=== PATIENT | female | born 1995 | race Caucasian/White ===

== ENCOUNTER 2017-01-18 18:20 | Emergency (ER) | payer OTHER ==
[~2017-01-18] VITALS: Ht 162.6 cm; Wt 82.0 kg
[~2017-01-18 18:20] MED LIST: ACET325T33 PO; AMOX1TAB10 PO
[2017-01-18 19:02] VITALS: Ht 162.6 cm; Wt 82.0 kg
[2017-01-18] MEDS ORDERED: AZIT250T94 PO (19:18)
[2017-01-18] MEDS ORDERED: IBUP-1542 PO (19:18)
[2017-01-18] MEDS ORDERED: [UNRECOGNIZED DRUG - CODE] PO (19:19)
--- NOTE | 2017-01-18 19:21 | ERD ---
ER Documentation Chief Complaint Date/Time DATE: 01/18/17 TIME: 19:20 Chief Complaint sore throat and left ear pain x 1 week HPI This 21-year-old female presents with sore throat and left ear pain for last week. She has mild congestion without significant cough and no history of vomiting, vomiting, diarrhea. There is no bleeding or discharge. ROS All systems reviewed and are negative except as per history of present illness. Medications Home Meds Active Scripts Guaifen/Phenyleph/Acetaminophn (Sudafed PE Pressure+Pain+Mucus) 1 Each Tablet, 1 EACH PO BID, #14 TAB Prov:MARY MONTGOMERY MD 01/18/17 Ibuprofen* (Motrin*) 600 Mg Tab, 600 MG PO Q6, #30 TAB Prov:MARY MONTGOMERY MD 01/18/17 Azithromycin* (Zithromax*) 250 Mg Tablet, 250 MG PO .ZPACK DIRECTED, #6 TAB TAKE 500 MG (2 TABS) THE FIRST DAY THEN 250 MG (1 TAB) DAYS 2-5 Prov:MARY MONTGOMERY MD 01/18/17 Acetaminophen* (Tylenol*) 325 Mg Tablet, 1 TAB PO Q6 Y for PAIN AND OR ELEVATED TEMP, #20 TAB Prov:BHARTI HESTER PA-C 12/29/15 Amox Tr/Potassium Clavulanate (Amox Tr-K Clv 875-125 Mg Tab) 1 Tab Tablet, 1 TAB PO BID for 5 Days, TAB Prov:BHARTI HESTER PA-C 12/29/15 Allergies Allergies: Coded Allergies: No Known Allergy (Unverified , 01/18/17) PMhx/Soc History of Surgery: No Anesthesia Reaction: No Hx Neurological Disorder: No Hx Respiratory Disorders: No Hx Cardiac Disorders: No Hx Psychiatric Problems: No Hx Miscellaneous Medical Probl: No Hx Alcohol Use: No Hx Substance Use: No Hx Tobacco Use: No Physical Exam Vitals Vital Signs Date Time Temp Pulse Resp B/P Pulse Ox O2 Delivery O2 Flow Rate FiO2 01/18/17 19:02 100.5 111 18 139/64 99 Physical Exam Const: [], [id number]. Head: Atraumatic Eyes: Normal Conjunctiva ENT: Normal External Ears, Nose and Mouth. Left TM shows clear to yellow fluid. There is some erythema of the posterior oropharynx with uvula midline and airway patent. Slight tender left anterior cervical lymphadenitis Neck: Full range of motion..~ No meningismus. Resp: Clear to auscultation bilaterally Cardio: Regular rate and rhythm, no murmurs Abd: Soft, non tender, non distended. Normal bowel sounds Skin: No petechiae or rashes Back: No midline or flank tenderness Ext: No cyanosis, or edema Neur: Awake and alert Psych: Normal Mood and Affect Results 24 hrs Current Medications Medications (Trade) Dose Ordered Sig/Mikki Route PRN Reason Start Time Stop Time Status Last Admin Dose Admin Ibuprofen (Motrin) 600 mg ONCE ONCE PO 01/18/17 19:30 01/18/17 19:31 Procedures/MDM Patient presents with sore throat and ear pain and signs of otitis media and pharyngitis. She will treated with Zithromax and ibuprofen and Sudafed . No evidence of abscess, airway obstruction, sinusitis, sepsis, mastoiditis. The patient was stable with no new complaints during the ER course. Clinically, there is no current evidence to suggest meningitis, sepsis, acute abdomen, pneumonia, acute coronary syndrome, pulmonary embolism, or any other emergent condition appearing to require further evaluation or hospitalization. The patient should certainly return for any new or worsening symptoms per the aftercare instructions. They should otherwise follow-up with her primary care doctor for reevaluation this week. Disclaimer: Inadvertent spelling and grammatical errors are likely due to EHR/ dictation software use and do not reflect on the overall quality of patient care. Also, please note that the electronic time recorded on this note does not necessarily reflect the actual time of the patient encounter. Departure Diagnosis: Primary Impression: Otitis media Otitis media type: suppurative Laterality: left Chronicity: acute Recurrence: not specified as recurrent Spontaneous tympanic membrane rupture: without spontaneous rupture Qualified Code: H66.002 - Acute suppurative otitis media of left ear without spontaneous rupture of tympanic membrane, recurrence not specified Additional Impression: Sore throat Condition: Stable Patient Instructions: Otitis Media, Abx Tx (Adult) Additional Instructions: Recheck for new or worsening symptoms or with primary care doctor. MARY MONTGOMERY MD Jan 18, 2017 19:21
[2017-01-18] MEDS ORDERED: IBUPROFEN 600 MG TAB PO ONE (19:30)
== END 2017-01-18 19:48 | disposition home or self-care (01) ==
LOC: FTE 18:20
DX: H66.002 Acute suppurative otitis media without spontaneous rupture of ear drum, left ear (principal)
CPT/HCPCS: Z7502; Z7610; 99283

== ENCOUNTER 2017-08-08 09:03 | Emergency (ER) | END 2017-08-08 12:00 | disposition home or self-care (01) ==